=== PATIENT | female | born 2000 | race African-American/Black ===

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

== ENCOUNTER 2021-01-30 12:17 | Emergency (ER) | payer OTHER ==
[~2021-01-30] VITALS: Ht 165.1 cm; Wt 68.0 kg
[2021-01-30 12:54] VITALS: BP 110/67
== END 2021-01-30 12:54 | disposition home or self-care (01) ==
LOC: ED 12:17
DX: T81.33XA Disruption of traumatic injury wound repair, initial encounter (principal); Y83.8 Other surgical procedures as the cause of abnormal reaction of the patient, or of later complication, without mention of misadventure at the time of the procedure

== ENCOUNTER 2021-03-25 21:14 | Emergency (ER) | payer OTHER ==
[~2021-03-25] VITALS: Ht 274.3 cm; Wt 70.5 kg
[2021-03-25 21:54] LABS: HEMATOCRIT 36.7 % (37.0-47.0); HEMOGLOBIN 11.6 g/dl (12.0-16.0); IMMATURE GRANULOCYTES 0.2 % (0.0-5.0); MEAN CORPUSCULAR HGB 26.5 pG CALC (26.0-32.0); MEAN CORPUSCULAR HGB CONC 31.6 g/dL CAL (32.0-36.0); NEUT# 3.67 thou/uL (2.00-7.15); RED BLOOD COUNT 4.37 mill/uL (4.20-5.60); RED CELL DISTRI WIDTH 12.9 % (11.5-15.5)
[2021-03-25 22:08] LABS: ALBUMIN 3.8 g/dL (3.2-5.0); ALKALINE PHOSPHATASE 42 u/l (38-126); ANION GAP 11 (6-22 (CALC)); BILIRUBIN, TOTAL 0.5 mg/dL (0.0-1.4); BUN 11 mg/dL (8-21); BUN/CREATININE RATIO 14 (12-20 (CALC)); CARBON DIOXIDE 27 mmol/l (22-30); CHLORIDE 103 mmol/l (95-108); CREATININE 0.8 mg/dL (0.5-1.0); GFR > 60 ML/MIN (>=60 (CALC)); GFR FOR AFR.AMER. > 60 ML/MIN (>=60 (CALC)); POTASSIUM 3.6 mmol/l (3.5-5.1); SGOT/AST 17 u/l (14-36); SODIUM 137 mmol/l (137-146); TOTAL PROTEIN 7.2 g/dL (6.3-8.2)
[2021-03-25] MEDS ORDERED: PHENERGAN25 MG RE (23:05)
[2021-03-25] MEDS ORDERED: IMITREX100 M1 PO (23:05)
[2021-03-25 23:10] VITALS: BP 138/85
== END 2021-03-25 23:10 | disposition home or self-care (01) ==
LOC: ED 21:14
PROVIDERS: Family Medicine
DX: G43.009 Migraine without aura, not intractable, without status migrainosus (principal)

== ENCOUNTER 2022-06-12 21:22 | Emergency (ER) | payer OTHER ==
[~2022-06-12] VITALS: Ht 167.6 cm; Wt 100.0 kg
[~2022-06-12 21:22] MED LIST changes: +IMITREX100 M1 PO; +PHENERGAN25 MG RE
[2022-06-12 22:05] VITALS: BP 112/74
[2022-06-12 22:15] VITALS: BP 114/74
[2022-06-12 22:30] VITALS: BP 98/62
[2022-06-12 22:45] VITALS: BP 93/57
[2022-06-12 23:00] VITALS: BP 95/59
[2022-06-12 23:13] VITALS: BP 95/59
== END 2022-06-12 23:13 | disposition home or self-care (01) ==
LOC: ED 21:22
DX: S93.401A Sprain of unspecified ligament of right ankle, initial encounter (principal); W10.9XXA Fall (on) (from) unspecified stairs and steps, initial encounter